=== PATIENT | female | born 1950 | race Caucasian/White ===

== ENCOUNTER 2018-11-18 01:51 | Inpatient (IN) | payer MEDICARE ==
[2018-11-18] VITALS (17 sets, daily range): BP systolic 93–127; BP diastolic 50–69; BMI 18.6
[~2018-11-18] VITALS: Ht 170.2 cm; Wt 53.4 kg
--- NOTE | ~2018-11-18 | HEMODYNAMI ---
PATIENT:TORO RODAS MEDICAL RECORD: [id number] : 48 [facility] [id number] ADMISSION DATE: 11/18/18 Generatedon:11/22/201810:32 Patient name: TORO RODAS Patient #: [id number] SSN: : 1950 Date of study: 11/22/2018 Page: Of Hemodynamic Procedure Report Patient Data Patient Demographics Procedure consent was obtained First Name: TORO Gender: Female Last Name: CLARK : 1950 Middle Initial: S Age: 68 year(s) Patient #: [id number] Race: Unknown Additional ID: [id number] Contact details [address]: [address] [place] [address] 14 State: [place] City: [place] Zip code: [address] Past Medical History Allergies Allergen Reaction Date Comments Reported Other allergy 11/22/2018 ibuprofen Admission Admission Data Admission Date: 11/18/2018 Admission Time: 6:58 Room #: D2125 Lab Results Lab Result Date: 11/22/2018 Lab Result Time: 7:09 Biochemistry Name Units Result Min Max BUN mg/dl 22 --(----)-* 7 18 Creatinine mg/dl 0.8 --(-*--)-- 0.6 1.3 CBC Name Units Result Min Max Hematocrit % 26.8 *-(----)-- 42 54 Hemoglobin g/dl 8.7 *-(----)-- 13.5 17.5 Procedure Procedure Types Cath Procedure Diagnostic Procedure LHC LHC w/Coronaries Procedure Description Procedure Date Procedure Date: 11/22/2018 Procedure Start Time: 10:13 Procedure End Time: 10:29 Procedure Staff Name Function Rex Pearson MD Performing Physician Salome Lau RT Monitor Kristina Martin RT Scrub Stephanie Chi RT Scrub Khang Sorenson RN Nurse Procedure Data Cath Procedure Fluoroscopy Diagnostic fluoroscopy Total fluoroscopy Time: 2.4 time: 2.4 min min Diagnostic fluoroscopy Total fluoroscopy dose: 447 dose: 447 mGy mGy Contrast Material Contrast Material Type Amount (ml) Isovue 300 63 Entry Location Entry Primary Successful Side Size Upsize Upsize Entry Closure Succes sful Closure Location (Fr) 1 (Fr) 2 (Fr) Remarks Device Remarks Femoral Right 5 Fr Exoseal artery Estimated blood loss: 10 ml Diagnostic catheters Device Type Used For End Catheter Placement MULTIPACK JL 4.0 5Fr Procedure catheter MULTIPACK 3DRC 5Fr Procedure catheter MULTIPACK Pigtail 5 Fr Procedure catheter Procedure Complications No complications Procedure Medications Medication Administration Route Dosage 0.9% NaCl I.V. 100 ml/hr Oxygen NC 6 l/min Heparin Flush Bag added to field 2 bags (1000units/500ml NS) Lidocaine 2% added to field 20 Fentanyl I.V. 25 mcg Hemodynamics Rest HGB: 8.7 (g/dl) Heart Rate: 93 (bpm) Pressure Samples Time Site Value (mmHg) Purpose Heart Use Rate(bpm) 10:24 LV 107/-5,18 EDP 85 Snapshots Pre Cath Intra NCS Post Cath Vital Signs Time Heart Resp SPO2 etCO2 NIBP (mmHg) Rhythm Pain Sedation Rate (ipm) (%) (mmHg) Status Level (bpm) 9:57:45 93 23 96 0 126/65(102) NSR 0 (11) 10(A) , No pain 10:01:50 93 19 97 0 134/69(99) NSR 0 (11) 10(A) , No pain 10:06:02 89 24 97 0 118/60(89) NSR 0 (11) 10(A) , No pain 10:10:10 87 22 96 0 118/60(84) NSR 0 (11) 10(A) , No pain 10:14:18 86 24 99 0 116/60(84) NSR 0 (11) 10(A) , No pain 10:18:26 85 19 95 0 110/58(78) NSR 0 (11) 10(A) , No pain 10:22:32 84 22 96 0 113/57(91) NSR 0 (11) 10(A) , No pain 10:26:37 83 23 95 0 115/58(83) NSR 0 (11) 10(A) , No pain Medications Time Medication Route Dose Verified Delivered Reason Notes Effe ctiveness by by 10:00:12 0.9% NaCl I.V. 100 Khang Khang Per ml/hr Delta Sorenson physician RN RN 10:00:33 Oxygen NC 6 Khang Khang for low 02 l/min Delta Sorenson sats RN RN 10:00:43 Heparin Flush added 2 Khang Khang used for Bag to bags Delta Sorenson procedure (1000units/500ml field RN RN NS) 10:00:59 Lidocaine 2% added 20ml Khang Khang for local to vial Delta Sorenson anesthetic field RN RN 10:07:27 Fentanyl I.V. 25 Khang Khang for mcg Delta Sorenson sedation RN mines safety engineer Log Time Note 9:33:47 Diagnostic Cath Status : Elective 9:34:12 Salome Lau RT(R) sent for patient. Start room use. 9:34:13 Time tracking: Regular hours (M-F 7:00 - 5:00) 9:34:18 Plan of Care:Hemodynamics will remain stable., Cardiac rhythm will remain stable., Comfort level will be maintained., Respiratory function will remain adequate., Patient/ family verbilizes understanding of procedure., Procedure tolerated without complication., Recovers from procedure without complications.. 9:49:48 Patient received from Med II to CCL 2 Alert and oriented. Tansferred to table in Supine position. 9:49:49 Warm blankets applied, and jose manuel hugger turned on for patient comfort. 9:49:50 Correct patient and procedure confirmed by team. 9:49:51 Signed procedure consent form obtained from patient. 9:49:51 ECG and BP/O2 sat monitors applied to patient. 9:49:52 Pre-procedure instructions explained to patient. 9:49:53 Pre-op teaching completed and patient verbalized understanding. 9:50:07 H&P Date Dictated: 11/18/2018 Within 30 days and on chart.. 9:51:26 Lab Result : BUN 22 mg/dl 9:51:26 Lab Result : Creatinine 0.8 mg/dl 9:51:26 Lab Result : Hemoglobin 8.7 g/dl 9:51:26 Lab Result : Hematocrit 26.8 % 9:51:28 Lab results completed and on chart. 9:51:47 Previous problem with sedation/anesthesia? No ? 9:51:48 Snore? No 9:51:49 Sleep apnea? No 9:51:50 Deviated septum? No 9:51:51 Opens mouth fully? Yes 9:51:51 Sticks out tongue? Yes 9:51:57 Airway obstruction? Yes COPD 9:52:02 Dentures? Yes OUT 9:52:07 Patient diabetic? No. 9:52:18 Family unavailable. 9:52:20 Patient NPO since Midnight. 9:52:34 Patient allergic to Other allergyibuprofen 9:52:35 Is the patient allergic to Iodine/contrast media? No. 9:52:36 Is patient on blood thinner?Yes 9:52:39 ACC The patient was administered the following blood thiners within the last 24 hours: ACCHeparin 9:52:55 Pre procedure: right dorsailis pedis pulse 1+ Palpable, but thready & weak; easily obliterated 9:52:57 Patient pain scale 0/10 ?. 9:53:02 IV patent on arrival in right forearm, right wrist with 0.9% NaCl at KVO. 9:53:12 Right groin area was prepped with chlora-prep and draped in sterile fashion 9:53:13 Alarms reviewed by R. N. 9:53:13 Sharps counted by scrub and verified by R.N. 9:53:15 Use device set Femoral Dx 9:53:16 ACIST Syringe (20010) opened to sterile field. 9:53:16 Bag Decanter (2002S) opened to sterile field. 9:53:17 Medline Cath Pack ([id number]) opened to sterile field. 9:53:18 ACIST Hand Control (27510) opened to sterile field. 9:53:18 ACIST Manifold (32114) opened to sterile field. 9:53:19 Tegaderm 4 x 4 (1626W) opened to sterile field. 9:53:19 SHEATH 5FR [place] (EKF062) opened to sterile field. 9:53:20 DIAGNOSTIC Multipack 5Fr catheter set (UM0670) opened to sterile field. 9:53:21 DIAGNOSTIC WIRE .035 260cm J wire (192606) opened to sterile field. 9:56:37 Vital chart was started 9:56:39 Baseline sample Acquired. 9:56:43 Rhythm: sinus rhythm 9:56:45 Full Disclosure recording started 9:57:02 Physician paged 10:00:12 0.9% NaCl 100 ml/hr I.V. was administered by Khang Sorenson RN; Per physician; 10:00:33 Oxygen 6 l/min NC was administered by Khang Sorenson RN; for low 02 sats; 10:00:43 Heparin Flush Bag (1000units/500ml NS) 2 bags added to field was administered by Khang Sorenson RN; used for procedure; 10:00:59 Lidocaine 2% 20ml vial added to field was administered by Khang Sorenson RN; for local anesthetic; 10:04:19 Physician arrived 10:04:20 --------ALL STOP TIME OUT------ 10:04:20 Final Timeout: patient, procedure, and site verified with staff and physician. All members of the team are in agreement. 10:04:23 Right groin site verified by team. 10:04:28 Fire Safety Assessment: A--An alcohol-based skin anteseptic being used preoperatively., C--Open oxygen or nitrous oxide is being used., D--An ESU, laser, or fiber-optic light is being used. 10:04:31 Physical assessment completed. ASA score P 2 - A patient with mild systemic disease as per Rex Pearson MD. 10:04:35 Sedation plan: IV Moderate Sedation Medication:Versed, Fentanyl 10:07:27 Fentanyl 25 mcg I.V. was administered by Khang Sorenson RN; for sedation; 10:12:13 Zero performed for pressure channel P1 10:12:21 Procedure started. 10:13:09 Local anesthetic to right femoral artery with Lidocaine 2% by Rex Pearson MD.INITIAL ACCESS ONLY 10:14:47 A 5 Fr sheath was inserted into the Right Femoral artery 10:16:55 A MULTIPACK JL 4.0 5Fr catheter was advanced over the wire and used for Procedure. 10:16:58 LCA angiography performed. 10:17:28 Catheter removed. 10:18:09 A MULTIPACK 3DRC 5Fr catheter was advanced over the wire and used for Procedure. 10:18:13 RCA angiography performed. 10:20:39 Catheter removed. 10:20:45 A MULTIPACK Pigtail 5 Fr catheter was advanced over the wire and used for Procedure. 10:23:54 LV angiography performed. 10:24:39 EF : 45 % 10:25:45 EXOSEAL 5Fr (EX500) opened to sterile field. 10:25:59 Catheter removed. 10:26:51 Sheath removed intact; hemostasis achieved with Exoseal to the Right Femoral artery. 10:26:54 Procedure ended.(Physican Out) 10:27:12 Fluoroscopy time 02.40 minutes. 10:27:17 Flurop Dose total: 447 10:27:17 Fluoroscopy dose: 447 mGy 10:27:23 Contrast amount:Isovue 300 63ml. 10:27:25 Sharps counted by scrub and verified by R.N. 10:27:27 Insertion/operative site no bleeding no hematoma. 10:27:45 Post-op/insertion site Right Femoral artery dressed using a 4 x 4 and Tegaderm. 10:27:48 Post Procedure Pulses reassessed and unchanged 10:27:48 Post Procedure Pulses reassessed and unchanged 10:27:52 Post-procedure physical assessment completed. ASA score P 2 - A patient with mild systemic disease as per Rex Pearson MD. 10:27:55 Post procedure rhythm: unchanged. 10:27:58 Estimated blood loss: 10 ml 10:28:01 Post procedure instruction explained to patient.Patient verbalizes understanding. 10:28:10 Procedure and supply charges have been captured, reviewed, submitted and are correct. 10:28:36 Procedure Complication : No complications 10:28:41 Vital chart was stopped 10::41 See physician's report for complete and final results. 10:28:44 Report given to [facility]. 10:28:48 Patient transfered to [facility] with Bed. 10:29:00 Procedure ended. 10:29:00 Full Disclosure recording stopped 10:29:03 End room use (Document Last) 10:29:03 End room use (Document Last) Device Usage Item Name Manufacture Quantity Catalog Hospital Part Current Minimal L ot# / Number Charge Number Stock Stock Serial# Code ACIST Acist 1 77023 077423 664125 188814 20 Syringe Medical (80456) Systems Inc Bag Microtek 1 834271 24771 061310 5 Decanter Medical Inc. () Medline Medline 1 [id number] 676818 77785 599425 5 Cath Pack ([id number]) ACIST Hand Acist 1 42473 902404 140499 714013 5 Control Medical (99975) Systems Inc ACIST Acist 1 18662 691623 654315 799334 5 Manifold Medical (09355) Systems Inc Tegaderm 4 3M 1 1626W 582625 951990 891038 5 x 4 (1626W) SHEATH 5FR Terumo 1 TKD262 481421 246328 218672 5 [place] (MKV446) DIAGNOSTIC Cardinal 1 ZE3941 749223 35057 168822 30 Multipack Health 5Fr catheter set (LE3349) DIAGNOSTIC St Tony 1 672428 087143 666183 128228 30 WIRE .035 260cm J wire (536118) MULTIPACK Cardinal 1 168850 5 JL 4.0 5Fr Health catheter MULTIPACK Cardinal 1 257839 5 3DRC 5Fr Health catheter MULTIPACK Cardinal 1 424237 5 Pigtail 5 Health Fr catheter EXOSEAL 5Fr Cardinal 1 EX500 156570 868722 937034 10 (EX500) Health Signature Audit [place] Stage Time Signature Unsigned Intra-Procedure 11/22/2018 Salome Lau 10:32:06 AM RT(R) Signatures Monitor : Salome Lau Signature : RT Date : Time : [facility] [address] [place] [address]
[2018-11-18] MEDS ORDERED: ZOCOR20 MG PO (01:59)
[2018-11-18] MEDS ORDERED: COUMADIN5 MG PO (01:59)
[2018-11-18] MEDS ORDERED: CARDIZEM CD240 MG PO (01:59)
[2018-11-18 02:23] LABS: BASOPHILS 0.1 % (0-2); EOSINOPHILS 0.1 % (0-7); HEMATOCRIT 28.5 % (36.0-48.0); HEMOGLOBIN 9.2 g/dL (12-16); IMMATURE GRANULOCYTES 0.4 % (0-5); LYMPHOCYTES 16.6 % (15-50); MCH 27.9 pg (26.0-34.0); MCHC 32.3 g/dL (31.0-37.0); MCV 86.4 fL (80.0-100.0); MEAN PLATELET VOLUME 9.4 fL (7.4-10.4); MONOCYTES 8.7 % (2-11); NEUTROPHILS 74.1 % (40-80); PLATELET COUNT 141 10x3/uL (130-400); RDW 15.6 % (11.5-14.5); WBC 13.5 10x3/uL (4.8-10.8)
[2018-11-18 02:34] LABS: APTT 26.7 SECONDS (22.8-39.4); INR 1.47 (0.85-1.17); PROTIME 17.3 SECONDS (11.6-15.0)
[2018-11-18 02:39] LABS: ALBUMIN 2.6 g/dL (3.4-5.0); ALKALINE PHOSPHATASE 74 U/L (46-116); ALT (SGPT) 26 U/L (10-68); BILIRUBIN - TOTAL 0.32 mg/dL (0.2-1.3); CALC OSMOLALITY 269 mosm/kg (275-300); CALCIUM 8.3 mg/dL (8.5-10.1); CARBON DIOXIDE 22.7 mmol/L (21.0-32.0); CHLORIDE - SERUM 97 mmol/L (98-107); CREATININE - SERUM 0.8 mg/dL (0.6-1.3); GLUCOSE 120 mg/dL (74-106); POTASSIUM - SERUM 3.8 mmol/L (3.5-5.1); PROTEIN - SERUM 6.8 g/dL (6.4-8.2); SODIUM 133 mmol/L (136-145); UREA NITROGEN 22 mg/dL (7-18); eGFR NON AFRICAN AMERICAN 75 mL/min (90-120)
[2018-11-18 02:56] LABS: CKMB 24.9 U/L (0.0-3.6); CREATINE KINASE 257 UL (21-215); MAGNESIUM - SERUM 1.8 mg/dL (1.8-2.4); TROPONIN-I 4.702 ng/mL (0.000-0.060)
[2018-11-18] MEDS ORDERED: CELEXA10 MG (03:03)
[2018-11-18] MEDS ORDERED: DIOVAN320 MG PO (03:03)
[2018-11-18] MEDS ORDERED: ELIQUIS5 MG PO (03:03)
[2018-11-18] MEDS ORDERED: XANAX0.5 MG PO (07:48)
[2018-11-18 11:27] LABS: CKMB 28.8 U/L (0.0-3.6); CREATINE KINASE 259 UL (21-215)
[2018-11-18 11:28] LABS: TROPONIN-I 4.181 ng/mL (0.000-0.060)
[2018-11-18 12:27] LABS: % SATURATION 9 % (15-55); IRON 22 ug/dl (35-150); TOTAL IRON BIND CAPACITY 233 ug/dl (260-445); UNSAT IRON BIND CAPACITY 211 ug/dl (150-375)
[2018-11-18 17:40] LABS: CREATINE KINASE 315 UL (21-215)
[2018-11-18 17:48] LABS: TROPONIN-I 6.154 ng/mL (0.000-0.060)
[2018-11-19 03:45] VITALS: BP 101/43
[2018-11-19 06:28] LABS: CALC OSMOLALITY 275 mosm/kg (275-300); CALCIUM 8.6 mg/dL (8.5-10.1); CARBON DIOXIDE 20.8 mmol/L (21.0-32.0); CHLORIDE - SERUM 100 mmol/L (98-107); CREATININE - SERUM 0.8 mg/dL (0.6-1.3); GLUCOSE 126 mg/dL (74-106); POTASSIUM - SERUM 3.4 mmol/L (3.5-5.1); SODIUM 135 mmol/L (136-145); UREA NITROGEN 24 mg/dL (7-18); eGFR NON AFRICAN AMERICAN 75 mL/min (90-120)
[2018-11-19 06:35] LABS: BASOPHILS 0.2 % (0-2); EOSINOPHILS 0 % (0-7); HEMATOCRIT 24.5 % (36.0-48.0); HEMOGLOBIN 7.8 g/dL (12-16); IMMATURE GRANULOCYTES 0.3 % (0-5); LYMPHOCYTES 6.5 % (15-50); MCH 28.1 pg (26.0-34.0); MCHC 31.8 g/dL (31.0-37.0); MCV 88.1 fL (80.0-100.0); MEAN PLATELET VOLUME 10.4 fL (7.4-10.4); MONOCYTES 7.5 % (2-11); NEUTROPHILS 85.5 % (40-80); PLATELET COUNT 137 10x3/uL (130-400); RBC 2.78 10x6/uL (4.00-5.40); RDW 15.9 % (11.5-14.5)
[2018-11-19 06:41] LABS: WBC 17.9 10x3/uL (4.8-10.8)
[2018-11-19 08:44] VITALS: BP 126/61
[2018-11-19 12:02] VITALS: BP 132/64
[2018-11-19 13:19] VITALS: BMI 18.6
[2018-11-19 16:01] VITALS: BP 122/66
[2018-11-19 17:17] LABS: APPEARANCE CLOUDY (CLEAR); BILIRUBIN 1+ (NEGATIVE); COLOR DK YELLOW (YELLOW); GLUCOSE NEGATIVE (NEGATIVE); KETONE NEGATIVE (NEGATIVE); NITRITE NEGATIVE (NEGATIVE); PROTEIN 1+ mg/dL (NEGATIVE); UROBILINOGEN NORMAL (NORMAL)
[2018-11-19 17:18] LABS: BACTERIA MODERATE /hpf (NONE SEEN); EPITHELIAL CELLS 0-5 /hpf (0-5); RED CELLS - URINE 0-5 /hpf (0-5); WHITE CELLS - URINE 0-5 /hpf (0-5)
[2018-11-19 17:19] LABS: HYALINE CAST RARE /lpf (NONE SEEN); TALC POWDER CRYSTALS RARE /hpf (NONE SEEN)
[2018-11-19 20:00] VITALS: BP 98/53
[2018-11-20] VITALS: BP 89/53
[2018-11-20 04:00] VITALS: BP 96/52
[2018-11-20 06:53] LABS: BASOPHILS 0.1 % (0-2); EOSINOPHILS 0.2 % (0-7); IMMATURE GRANULOCYTES 0.4 % (0-5); LYMPHOCYTES 10.4 % (15-50); MCH 28.5 pg (26.0-34.0); MCHC 32.9 g/dL (31.0-37.0); MCV 86.4 fL (80.0-100.0); MEAN PLATELET VOLUME 10.6 fL (7.4-10.4); MONOCYTES 5.4 % (2-11); NEUTROPHILS 83.5 % (40-80); RDW 16.1 % (11.5-14.5); WBC 18.9 10x3/uL (4.8-10.8)
[2018-11-20 07:07] LABS: HEMATOCRIT 31.9 % (36.0-48.0); HEMOGLOBIN 10.5 g/dL (12-16); PLATELET COUNT 202 10x3/uL (130-400); RBC 3.69 10x6/uL (4.00-5.40)
[2018-11-20 07:12] LABS: ANION GAP 17.6 mmol/L (8-16); CALCIUM 8.6 mg/dL (8.5-10.1); CARBON DIOXIDE 21.8 mmol/L (21.0-32.0); CREATININE - SERUM 0.9 mg/dL (0.6-1.3); POTASSIUM - SERUM 3.4 mmol/L (3.5-5.1)
[2018-11-20 09:47] VITALS: BP 90/45
[2018-11-20 20:00] VITALS: BP 108/45
[2018-11-21] VITALS: BP 112/61
[2018-11-21 04:00] VITALS: BP 112/55
[2018-11-21 06:42] LABS: CALC OSMOLALITY 278 mosm/kg (275-300); CALCIUM 8.9 mg/dL (8.5-10.1); CARBON DIOXIDE 20.8 mmol/L (21.0-32.0); CHLORIDE - SERUM 100 mmol/L (98-107); CREATININE - SERUM 0.8 mg/dL (0.6-1.3); GLUCOSE 128 mg/dL (74-106); POTASSIUM - SERUM 3.8 mmol/L (3.5-5.1); SODIUM 136 mmol/L (136-145); UREA NITROGEN 26 mg/dL (7-18); eGFR NON AFRICAN AMERICAN 75 mL/min (90-120)
[2018-11-21 06:59] LABS: HEMOGLOBIN 9.6 g/dL (12-16); MCH 28.7 pg (26.0-34.0); MCHC 33.1 g/dL (31.0-37.0); MCV 86.6 fL (80.0-100.0); MEAN PLATELET VOLUME 10.8 fL (7.4-10.4); RBC 3.35 10x6/uL (4.00-5.40); RDW 16.3 % (11.5-14.5); WBC 14.3 10x3/uL (4.8-10.8)
[2018-11-21 07:03] LABS: PLATELET COUNT 318 10x3/uL (130-400)
[2018-11-21 07:47] VITALS: BP 105/57
[2018-11-21 07:59] LABS: LYMPHOCYTES 12 % (15-50); MONOCYTES 9 % (2-11); NEUTROPHILS 78 % (40-80); PLATELET ESTIMATE NORMAL
[2018-11-21 11:26] VITALS: BP 109/46
[2018-11-21 15:03] VITALS: BP 113/47
[2018-11-21 20:00] VITALS: BP 103/40
[2018-11-22] VITALS (19 sets, daily range): BP systolic 98–135; BP diastolic 51–84; BMI 16.9
[2018-11-22 02:12] LABS: D-DIMER-QUANTITATIVE 3.71 ug/mLFEU (0.20-0.54)
[2018-11-22 02:59] LABS: APTT 168.6 SECONDS (22.8-39.4)
[2018-11-22 07:28] LABS: BASOPHILS 0.2 % (0-2); EOSINOPHILS 0.3 % (0-7); HEMATOCRIT 26.8 % (36.0-48.0); HEMOGLOBIN 8.7 g/dL (12-16); IMMATURE GRANULOCYTES 1.7 % (0-5); LYMPHOCYTES 13.6 % (15-50); MCH 28.2 pg (26.0-34.0); MCHC 32.5 g/dL (31.0-37.0); MEAN PLATELET VOLUME 9.6 fL (7.4-10.4); NEUTROPHILS 74.2 % (40-80); PLATELET COUNT 306 10x3/uL (130-400); RBC 3.08 10x6/uL (4.00-5.40); RDW 16.3 % (11.5-14.5)
[2018-11-22 07:40] LABS: CALC OSMOLALITY 279 mosm/kg (275-300); CALCIUM 8.6 mg/dL (8.5-10.1); CARBON DIOXIDE 22.7 mmol/L (21.0-32.0); CHLORIDE - SERUM 102 mmol/L (98-107); CREATININE - SERUM 0.8 mg/dL (0.6-1.3); GLUCOSE 123 mg/dL (74-106); SODIUM 138 mmol/L (136-145); UREA NITROGEN 22 mg/dL (7-18); eGFR NON AFRICAN AMERICAN 75 mL/min (90-120)
[2018-11-22 07:42] LABS: POTASSIUM - SERUM 3.2 mmol/L (3.5-5.1)
[2018-11-23] VITALS (25 sets, daily range): BP systolic 93–119; BP diastolic 42–57
[2018-11-23 05:23] LABS: HEMATOCRIT 25.9 % (36.0-48.0); HEMOGLOBIN 8.6 g/dL (12-16); MCHC 33.2 g/dL (31.0-37.0); MCV 87.2 fL (80.0-100.0); MEAN PLATELET VOLUME 9.6 fL (7.4-10.4); PLATELET COUNT 152 10x3/uL (130-400); RBC 2.97 10x6/uL (4.00-5.40); RDW 16.5 % (11.5-14.5); WBC 22.5 10x3/uL (4.8-10.8)
[2018-11-23 05:24] LABS: ANION GAP 22.8 mmol/L (8-16); CALCIUM 8.5 mg/dL (8.5-10.1); CARBON DIOXIDE 17.8 mmol/L (21.0-32.0)
[2018-11-23 05:47] LABS: CREATININE - SERUM 2.1 mg/dL (0.6-1.3); POTASSIUM - SERUM 4.6 mmol/L (3.5-5.1)
[2018-11-23 07:22] LABS: LYMPHOCYTES 4 % (15-50); MONOCYTES 3 % (2-11); NEUTROPHILS 86 % (40-80); PLATELET ESTIMATE NORMAL
--- NOTE | 2018-11-23 17:00 | MORECARE ---
CASE MANAGEMENT DISCHARGE SUMMARY PATIENT: TORO RODAS S UNIT: [id number] ADM DATE: 11/18/18 AGE: 68 : 49 SEX: F ROOM/BED: [facility] AUTHOR: MARISOL EGAN PHYSICIAN: REFERRING PHYSICIAN: JEANNE ROCHA MD DATE OF SERVICE: 11/23/18 Discharge Plan Patient Name: TORO RODAS [facility] [facility] 1950 Planned Disposition: Anticipated Discharge Date: Discharge Date: Expected LOS: Initial Reviewer: [email or web address] Initial Review Date: 11/18/2018 Generated: 11/23/18 6:00 pm Comments DCP- Discharge Planning Updated by [email or web address]: Shira Hernandez on 11/23/18 3:[address] CM ATTEMPTED TO MEET WITH PATIENT SHE IS CURRENTLY ON BIPAP AND UNABLE TO SPEAK TO ME FOR D/C PLANNING. CM WILL CONTINUE TO FOLLOW AND ASSIST NEEDED WITH DISCHARGE PLANNING / NEEDS. Patient Name: TORO RODAS Page [phone] at 1700 All edits/amendments must be made on the electronic document DICTATION DATE: 11/23/181658 EMPLOYEE RELATIONS REPRESENTATIVE: ROBSON 11/23/181658 RPT#: [id number] DC DATE: STATUS: [facility] [address] [place] [address] END OF REPORT
[2018-11-23 23:50] LABS: APPEARANCE CLEAR (CLEAR); COLOR YELLOW (YELLOW); NITRITE NEGATIVE (NEGATIVE); PROTEIN TRACE mg/dL (NEGATIVE)
[2018-11-23 23:51] LABS: BILIRUBIN NEGATIVE (NEGATIVE); EPITHELIAL CELLS NSEEN /hpf (0-5); GLUCOSE 50 mg/dL (NEGATIVE); KETONE NEGATIVE (NEGATIVE); UROBILINOGEN NORMAL (NORMAL); WHITE CELLS - URINE NSEEN /hpf (0-5)
[2018-11-24] VITALS (24 sets, daily range): BP systolic 96–125; BP diastolic 31–60
[2018-11-24 00:34] LABS: CREATININE - URINE 53.2 mg/dL (30-125); POTASSIUM - URINE 56.6 MMOL/L (12.0-62.0); PRO/CRE RATIO URINE 2.8 mg/g; PROTEIN - URINE 151.5 mg/dL (0.0-11.9)
[2018-11-24 06:30] LABS: HEMATOCRIT 36.4 % (36.0-48.0); HEMOGLOBIN 11.2 g/dL (12-16); MCH 27.6 pg (26.0-34.0); MCHC 30.8 g/dL (31.0-37.0); MCV 89.7 fL (80.0-100.0); MEAN PLATELET VOLUME 10.3 fL (7.4-10.4); PLATELET COUNT 144 10x3/uL (130-400); RBC 4.06 10x6/uL (4.00-5.40); RDW 18.5 % (11.5-14.5); WBC 28.1 10x3/uL (4.8-10.8)
[2018-11-24 06:43] LABS: ALBUMIN 2.3 g/dL (3.4-5.0); BILIRUBIN - TOTAL 0.28 mg/dL (0.2-1.3); CALCIUM 8.3 mg/dL (8.5-10.1); CARBON DIOXIDE 21.2 mmol/L (21.0-32.0); CREATININE - SERUM 3.5 mg/dL (0.6-1.3); POTASSIUM - SERUM 4.2 mmol/L (3.5-5.1); PROTEIN - SERUM 5.9 g/dL (6.4-8.2)
[2018-11-24 08:31] LABS: LYMPHOCYTES 3 % (15-50); MONOCYTES 2 % (2-11); NEUTROPHILS 84 % (40-80); PLATELET ESTIMATE NORMAL
[2018-11-24 08:32] LABS: POLYCHROMASIA 2+; SMUDGE CELLS 3+
[2018-11-24 08:33] LABS: ANISOCYTOSIS 3+
[2018-11-25] VITALS (24 sets, daily range): BP systolic 91–114; BP diastolic 45–78
[2018-11-25 06:12] LABS: ALBUMIN 2.4 g/dL (3.4-5.0); BILIRUBIN - TOTAL 0.29 mg/dL (0.2-1.3); CALCIUM 8.5 mg/dL (8.5-10.1); POTASSIUM - SERUM 4.4 mmol/L (3.5-5.1); PROTEIN - SERUM 5.9 g/dL (6.4-8.2)
[2018-11-25 06:17] LABS: ANION GAP 16.6 mmol/L (8-16); CARBON DIOXIDE 26.8 mmol/L (21.0-32.0); CREATININE - SERUM 4.4 mg/dL (0.6-1.3)
[2018-11-25 06:22] LABS: BASOPHILS 0.4 % (0-2); EOSINOPHILS 0 % (0-7); HEMATOCRIT 27.4 % (36.0-48.0); HEMOGLOBIN 8.6 g/dL (12-16); IMMATURE GRANULOCYTES 5.9 % (0-5); LYMPHOCYTES 3.4 % (15-50); MCH 28.8 pg (26.0-34.0); MCHC 31.4 g/dL (31.0-37.0); MCV 91.6 fL (80.0-100.0); MEAN PLATELET VOLUME 10.2 fL (7.4-10.4); MONOCYTES 4.1 % (2-11); NEUTROPHILS 86.2 % (40-80); PLATELET COUNT 172 10x3/uL (130-400); RBC 2.99 10x6/uL (4.00-5.40); RDW 18.8 % (11.5-14.5); WBC 37.3 10x3/uL (4.8-10.8)
[2018-11-25 10:02] LABS: APPEARANCE CLEAR (CLEAR); BILIRUBIN NEGATIVE (NEGATIVE); COLOR STRAW (YELLOW); GLUCOSE NEGATIVE (NEGATIVE); KETONE NEGATIVE (NEGATIVE); NITRITE NEGATIVE (NEGATIVE); PROTEIN 2+ mg/dL (NEGATIVE); SPECIFIC GRAVITY 1.015 (1.005-1.020); UROBILINOGEN NORMAL (NORMAL)
[2018-11-25 10:04] LABS: AMORPHOUS SEDIMENT <1+ /lpf (NONE SEEN); BACTERIA MANY /hpf (NONE SEEN); EPITHELIAL CELLS OCC /hpf (0-5); HYALINE CAST RARE /lpf (NONE SEEN); MUCUS >1+ /lpf (NONE SEEN); WHITE CELLS - URINE 25-50 /hpf (0-5); YEAST <1+ /hpf (NONE SEEN)
[2018-11-26] VITALS (24 sets, daily range): BP systolic 100–1150; BP diastolic 45–88
[2018-11-26 04:40] LABS: HEMATOCRIT 27.5 % (36.0-48.0); HEMOGLOBIN 8.5 g/dL (12-16); WBC 33.3 10x3/uL (4.8-10.8)
[2018-11-26 04:41] LABS: MCH 29.3 pg (26.0-34.0); MCHC 30.9 g/dL (31.0-37.0); MCV 94.8 fL (80.0-100.0); MEAN PLATELET VOLUME 10.5 fL (7.4-10.4); PLATELET COUNT 164 10x3/uL (130-400); RDW 19.6 % (11.5-14.5)
[2018-11-26 04:46] LABS: ANION GAP 17.6 mmol/L (8-16); CALCIUM 8.3 mg/dL (8.5-10.1); CARBON DIOXIDE 27.5 mmol/L (21.0-32.0); CREATININE - SERUM 4.5 mg/dL (0.6-1.3); EOSINOPHILS 1 % (0-7); LYMPHOCYTES 9 % (15-50); MONOCYTES 5 % (2-11); NEUTROPHILS 82 % (40-80); PLATELET ESTIMATE NORMAL; POTASSIUM - SERUM 4.1 mmol/L (3.5-5.1)
[2018-11-27] VITALS (26 sets, daily range): BP systolic 98–158; BP diastolic 44–82; Ht 170.2 cm; Wt 53.4 kg
[2018-11-27 05:13] LABS: ALBUMIN 2.7 g/dL (3.4-5.0); ANION GAP 16.3 mmol/L (8-16); BASOPHILS 0.2 % (0-2); BILIRUBIN - TOTAL 0.52 mg/dL (0.2-1.3); CALCIUM 8.2 mg/dL (8.5-10.1); CARBON DIOXIDE 30.3 mmol/L (21.0-32.0); CREATININE - SERUM 4.3 mg/dL (0.6-1.3); EOSINOPHILS 0 % (0-7); HEMOGLOBIN 9.3 g/dL (12-16); IMMATURE GRANULOCYTES 7.4 % (0-5); LYMPHOCYTES 2.9 % (15-50); MAGNESIUM - SERUM 2.5 mg/dL (1.8-2.4); MCH 29.6 pg (26.0-34.0); MCV 95.5 fL (80.0-100.0); MONOCYTES 4.4 % (2-11); NEUTROPHILS 85.1 % (40-80); PHOSPHOROUS 5.4 mg/dL (2.5-4.9); PLATELET COUNT 162 10x3/uL (130-400); POTASSIUM - SERUM 3.6 mmol/L (3.5-5.1); PROTEIN - SERUM 6.1 g/dL (6.4-8.2); RBC 3.14 10x6/uL (4.00-5.40); RDW 21.6 % (11.5-14.5); WBC 37.1 10x3/uL (4.8-10.8)
[2018-11-28] VITALS (11 sets, daily range): BP systolic 102–155; BP diastolic 43–77
[2018-11-28 05:34] LABS: HEMATOCRIT 26.3 % (36.0-48.0); MCH 29.6 pg (26.0-34.0); MCHC 30.4 g/dL (31.0-37.0); MCV 97.4 fL (80.0-100.0); PLATELET COUNT 87 10x3/uL (130-400); WBC 41.8 10x3/uL (4.8-10.8)
[2018-11-28 05:59] LABS: ALBUMIN 2.3 g/dL (3.4-5.0); ANION GAP 14.4 mmol/L (8-16); BILIRUBIN - TOTAL 0.49 mg/dL (0.2-1.3); CALCIUM 7.6 mg/dL (8.5-10.1); CARBON DIOXIDE 31.4 mmol/L (21.0-32.0); POTASSIUM - SERUM 3.8 mmol/L (3.5-5.1); PROTEIN - SERUM 5.3 g/dL (6.4-8.2); VANCOMYCIN - RANDOM 14.4 ug/mL (10.0-20.0)
[2018-11-28 07:54] LABS: LYMPHOCYTES 5 % (15-50); MONOCYTES 6 % (2-11); NEUTROPHILS 82 % (40-80); PLATELET ESTIMATE DECREASED
[2018-11-28 07:55] LABS: PELGER HUET OCC
[2018-11-28 07:56] LABS: ACANTHOCYTES OCC; ANISOCYTOSIS 1+; CRENATED CELLS OCC; HYPOCHROMASIA OCC; POLYCHROMASIA OCC; SCHISTOCYTES OCC
--- NOTE | 2018-11-28 11:04 | MORECARE ---
CASE MANAGEMENT DISCHARGE SUMMARY PATIENT: TORO RODAS S UNIT: [id number] ADM DATE: 11/18/18 AGE: 68 : 49 SEX: F ROOM/BED: [facility] AUTHOR: MARISOL EGAN PHYSICIAN: REFERRING PHYSICIAN: JEANNE ROCHA MD DATE OF SERVICE: 11/28/18 Discharge Plan Patient Name: TORO RODAS [facility] [facility] 1950 Planned Disposition: Anticipated Discharge Date: Discharge Date: Expected LOS: Initial Reviewer: [email or web address] Initial Review Date: 11/18/2018 Generated: 11/28/18 12:04 pm Comments DCP- Discharge Planning Updated by [email or web address]: Shira Hernandez on 11/23/18 3:[address] CM ATTEMPTED TO MEET WITH PATIENT SHE IS CURRENTLY ON BIPAP AND UNABLE TO SPEAK TO ME FOR D/C PLANNING. CM WILL CONTINUE TO FOLLOW AND ASSIST NEEDED WITH DISCHARGE PLANNING / NEEDS. External Providers External Provider: [facility](provides inp Next Contact Date: Service Request Date: Service Type: Resolution: Reviewer: Comments: Last DP export: 11/23/18 4:00 p Patient Name: TORO RODAS Page [phone] at 1104 All edits/amendments must be made on the electronic document DICTATION DATE: 11/28/18 110 SOFTWARE ENGINEERING MANAGER: ROBSON 11/28/18 1103 RPT#: [id number] DC DATE: STATUS: ADM IN [facility] [address] [facility] [place] [address] END OF REPORT
[2018-11-28 11:21] LABS: ANA REFLEX - DIRECT Negative (Negative)
--- NOTE | 2018-11-28 14:26 | MORECARE ---
CASE MANAGEMENT DISCHARGE SUMMARY PATIENT: TORO RODAS UNIT: [id number] ADM DATE: 11/18/18 AGE: 68 : 49 SEX: F ROOM/BED: [facility] AUTHOR: MARISOL EGAN PHYSICIAN: REFERRING PHYSICIAN: JEANNE ROCHA MD DATE OF SERVICE: 11/28/18 Discharge Plan Patient Name: TORO RODAS [facility] : 1950 Planned Disposition: Hospice Medical Facility Anticipated Discharge Date: 11/28/18 Discharge Date: Expected LOS: 10 Initial Reviewer: [email or web address] Initial Review Date: 11/28/2018 Generated: 11/28/18 3:25 pm Comments DCP- Discharge Planning Updated by [email or web address]: Shira Hernandez on 11/23/18 3:[address] CM ATTEMPTED TO MEET WITH PATIENT SHE IS CURRENTLY ON BIPAP AND UNABLE TO SPEAK TO ME FOR D/C PLANNING. CM WILL CONTINUE TO FOLLOW AND ASSIST NEEDED WITH DISCHARGE PLANNING / NEEDS. Last DP export: 11/28/18 10:04 a Patient Name: TORO RODAS Page 52340 at 1426 All edits/amendments must be made on the electronic document DICTATION DATE: 11/28/181424 STENCIL INSPECTOR: ROBSON 11/28/18 142 RPT#: [id number] DC DATE: STATUS: ADM IN [facility] [address] [place] [address] END OF REPORT
--- NOTE | 2018-11-28 14:41 | MORECARE ---
CASE MANAGEMENT DISCHARGE SUMMARY PATIENT: TORO RODAS UNIT: [id number] ADM DATE: 11/18/18 AGE: 68 : 49 SEX: F [facility] AUTHOR: JULISA,DOC PHYSICIAN: REFERRING PHYSICIAN: JEANNE ROCHA MD DATE OF SERVICE: 11/28/18 Discharge Plan Patient Name: TORO RODAS Facility: [facility]:[place] : 1950 Planned Disposition: Hospice Medical Facility Anticipated Discharge Date: 11/28/18 Discharge Date: 11/28/2018 Expected LOS: 10 Initial Reviewer: [email or web address] Initial Review Date: 11/28/2018 Generated: 11/28/18 3:41 pm Comments DCP- Discharge Planning Updated by [email or web address]: Shira Hernandez on 11/28/18 1:[address] Late Entry 11/28/18 @ 1020 Patient Name: TORO RODAS Admission Status: ER Accout number: [id number] Admission Date: 11-18-2018 : 1950 Admission Diagnosis:OTHER SPECIFIED ABNORMAL FINDINGS OF BLOOD CHEMISTRY Attending: JEANNE ROCHA Current LOS: 10 Anticipated DC Date: 11-28-2018 Planned Disposition: Hospice Medical Facility Primary Insurance: [facility] [employer] Discharge Planning Comments: CM was notified that patient and family are requesting hospice. CM notified Zeb Bolañosden [phone] [facility] of referral. Records faxed to [facility]. [facility] nurse arrived to evaluate patient. Family at bedside. Patient has been accepted into Hospice. IMM explained and served 11/28/18 @ 1420. CM will continue to follow and assist as needed with discharge planning / needs. Sisal Operator: Shira Hernandez DCP- Discharge Planning Updated by [id number]: Shira Hernandez on 11/23/18 3:[address] CM ATTEMPTED TO MEET WITH PATIENT SHE IS CURRENTLY ON BIPAP AND UNABLE TO SPEAK TO ME FOR D/C PLANNING. CM WILL CONTINUE TO FOLLOW AND ASSIST NEEDED WITH DISCHARGE PLANNING / NEEDS. Coverage Notice Reviewer: [email or web address] - Shira Hernandez Notice Issued Date-Time: 11/28/2018 14:20 Notice Type: IM Discharge Notice Notice Delivered To: Family Member Relationship to Patient: Daughter Marble Setter Name: Mima Us Delivery Method: HAND - Hand Delivered Sydni Days: Prior Verbal Notification: Recipient Understood Notice: Yes Recipient Signature: Yes Med Rec Note Co-signed by Attending: Coverage Notice Comment: Last DP export: 11/28/18 1:25 p Patient Name: TORO RODAS Page [phone] at 1441 All edits/amendments must be made on the electronic document DICTATION DATE: 11/28/18 1441 FUEL OPERATOR: ROBSON 11/28/18 1441 RPT#: [id number] DC DATE:11/28/18 STATUS: DIS IN [facility] [address] [place] [address] END OF REPORT
== END 2018-11-28 14:29 | disposition hospice, inpatient (51) | DRG 280 ==
LOC: D.ER 01:51 → D.M2 06:58 → D.CVICU 06:58 → D.SDCHOLD 11-19 17:17 → D.M2 11-19 17:18 → D.CVICU 11-22 11:59
PROVIDERS: Emergency Medicine; Family Medicine Adult Medicine; Internal Medicine; Internal Medicine Cardiovascular Disease; Internal Medicine Pulmonary Disease; ADMIT Internal Medicine Nephrology
PROC: B2151ZZ Fluoroscopy of Left Heart using Low Osmolar Contrast (ICD-10-PCS; 2018-11-22)
PROC: 4A023N7 Measurement of Cardiac Sampling and Pressure, Left Heart, Percutaneous Approach (ICD-10-PCS; 2018-11-22)
PROC: 3E073KZ Introduction of Other Diagnostic Substance into Coronary Artery, Percutaneous Approach (ICD-10-PCS; 2018-11-22)
PROC: 5A09457 Assistance with Respiratory Ventilation, 24-96 Consecutive Hours, Continuous Positive Airway Pressure (ICD-10-PCS; 2018-11-22)
PROC: B2111ZZ Fluoroscopy of Multiple Coronary Arteries using Low Osmolar Contrast (ICD-10-PCS; principal; 2018-11-22 09:33)
DX: I21.4 Non-ST elevation (NSTEMI) myocardial infarction (principal); I50.43 Acute on chronic combined systolic (congestive) and diastolic (congestive) heart failure; J96.01 Acute respiratory failure with hypoxia; J18.9 Pneumonia, unspecified organism; K72.00 Acute and subacute hepatic failure without coma; I63.9 Cerebral infarction, unspecified; I27.82 Chronic pulmonary embolism; N17.9 Acute kidney failure, unspecified; E87.1 Hypo-osmolality and hyponatremia; N39.0 Urinary tract infection, site not specified; I25.10 Atherosclerotic heart disease of native coronary artery without angina pectoris; Z79.01 Long term (current) use of anticoagulants; I48.91 Unspecified atrial fibrillation; J40 Bronchitis, not specified as acute or chronic; E78.5 Hyperlipidemia, unspecified; I11.0 Hypertensive heart disease with heart failure; D50.9 Iron deficiency anemia, unspecified; J02.0 Streptococcal pharyngitis; F32.9 Major depressive disorder, single episode, unspecified; J43.9 Emphysema, unspecified; I48.0 Paroxysmal atrial fibrillation; Z87.891 Personal history of nicotine dependence; N14.2 Nephropathy induced by unspecified drug, medicament or biological substance; Z66 Do not resuscitate; D69.6 Thrombocytopenia, unspecified; R53.81 Other malaise

== ENCOUNTER 2018-11-28 14:30 | Inpatient (IN) | payer OTHER ==
[~2018-11-28] VITALS: Ht 170.2 cm; Wt 53.2 kg
[~2018-11-28 14:30] MED LIST: CARDIZEM CD240 MG PO; CELEXA10 MG; COUMADIN5 MG PO; DIOVAN320 MG PO; ELIQUIS5 MG PO; XANAX0.5 MG PO; ZOCOR20 MG PO
[2018-11-28 15:42] VITALS: Ht 170.2 cm; Wt 53.2 kg
[2018-11-28 20:00] VITALS: BP 68/26; BP 91/43
--- NOTE | 2018-11-29 12:12 | MORECARE ---
CASE MANAGEMENT DISCHARGE SUMMARY PATIENT: TORO RODAS S UNIT: [id number] ADM DATE: 11/28/18 AGE: 68 : [birth year] SEX: F ROOM/BED: D.2239 AUTHOR: MARISOL EGAN PHYSICIAN: REFERRING PHYSICIAN: CLARITA MORAN MD DATE OF SERVICE: 11/29/18 Discharge Plan Patient Name: TORO RODAS Facility: [facility]:[place] : 1950 Planned Disposition: Anticipated Discharge Date: Discharge Date: Expected LOS: Initial Reviewer: [email or web address] Initial Review Date: 11/29/2018 Generated: 11/29/18 1:12 pm Patient Name: TORO RODAS Page 69616 at 1212 All edits/amendments must be made on the electronic document DICTATION DATE: 11/29/18 1211 WATER MECHANIC: ROBSON 11/29/18 1211 RPT#: [id number] DC DATE: STATUS: ADM IN [facility] [address] [place] [address] END OF REPORT
--- NOTE | 2018-11-30 16:59 | MORECARE ---
CASE MANAGEMENT DISCHARGE SUMMARY PATIENT: TORO RODAS UNIT: [id number] ADM DATE: 11/28/18 AGE: 68 : [birth year] SEX: F ROOM/BED: D.2239 AUTHOR: MARISOL EGAN PHYSICIAN: REFERRING PHYSICIAN: CLARITA MORAN MD DATE OF SERVICE: 11/30/18 Discharge Plan Patient Name: [facility]ORO RODAS [facility] [facility] 1950 Planned Disposition: Anticipated Discharge Date: Discharge Date: 11/29/2018 Expected LOS: 0 Initial Reviewer: [email or web address] Initial Review Date: 11/29/2018 Generated: 11/30/18 5:58 pm Last DP export: 11/29/18 11:12 a Patient Name: TORO RODAS Page 30894 at 1654 All edits/amendments must be made on the electronic document DICTATION DATE: 11/30/181657 PUBLICATION MANAGER: ROBSON 11/30/181657 RPT#: [id number] DC DATE:11/29/18 STATUS: DIS IN [facility] [address] [place] [address] END OF REPORT
== END 2018-11-29 21:20 | DRG 951 ==
LOC: D.CVICU 14:30 → D.MS 14:30
PROVIDERS: ADMIT Legal Medicine
DX: Z51.5 Encounter for palliative care (principal)